=== PATIENT | male | born 1990 | race Caucasian/White ===

== ENCOUNTER 2022-04-12 22:56 | Emergency (ER) | payer SELFPAY ==
[~2022-04-12] VITALS: Ht 185.4 cm; Wt 88.5 kg
[2022-04-12 22:56] VITALS: BP 125/93
--- NOTE | 2022-04-12 22:56 | NUR ---
ALONSO BAUTISTA TO CHAIR C
--- NOTE | 2022-04-12 23:34 | NUR ---
PATIENT BIB [facility] [facility]. PATIENT EXAMINED BY DR. CELESTIN. PATIENT MEDICALLY CLEARED AND RELEASED IN CUSTODY IN STABLE CONDITION. ORIGINAL PRE-BOOK FORM GIVEN TO OFFICER KAMALA, #[id number].
== END 2022-04-12 23:34 ==
LOC: MED 22:56
CPT/HCPCS: 99283